=== PATIENT | male | born 1955 | race Caucasian/White ===

== ENCOUNTER 2017-03-26 09:45 | Outpatient (CLI) | payer MEDICARE, OTHER ==
[2017-03-26] VITALS (7 sets, daily range): BP systolic 125–155; BP diastolic 54–80
[~2017-03-26] VITALS: Ht 175.3 cm; Wt 90.7 kg
[~2017-03-26 09:45] MED LIST: ACET-804 PO; ALLO300T PO; AMIT50TA PO; AMLO10TA4 PO; ASPI-482 PO; CALC0.25 PO; CHOL10003 PO; DARB60DI SQ; FERR-36 PO; FURO20TA3 PO; GABA-586 PO; GLYB5TAB3 PO; HALO5VIA2 IM; HYDR-2758 PO; HYDR-2869 PO; HYDR28OI2 TP; INSU100C SQ; INSU100I13 SQ; IPRA3AMP IH; IPRA3AMP NEB; ISOS60TA2 PO; LORA1TAB PO; MAGN250T10 PO; MAGN400T3 PO; METO50TA2 PO; MULT-246 PO; MYCO500T PO; NAPH1POW2 PO; NYST100054 PO; PRED2.5T PO; SODI650T PO; TACR0.5C2 PO
[2017-03-26 10:16] LABS: BASO # 0.1 x10^3/uL (0.0-0.2); BASO % 1 % (0-3); EOS % 3 % (0-3); HEMATOCRIT 43.8 % (39.0-53.0); LYMPH % 21 % (24-48); MEAN CORPUSCULAR HEMOGLOBIN 33 pg (25-35); MEAN CORPUSCULAR HGB CONC 34 g/dL (31-37); MEAN CORPUSCULAR VOLUME 95 fL (79-100); MONO % 8 % (0-9); NEUT % 67 % (31-73); PLATELET COUNT 140 x10^3/uL (140-400); RED BLOOD COUNT 4.61 x10^6/uL (4.30-5.70); RED CELL DISTRIBUTION WIDTH 16.9 % (11.5-14.5); WHITE BLOOD COUNT 4.9 x10^3/uL (4.0-11.0)
[2017-03-26 10:33] LABS: INR 1.1 (0.8-1.1); PROTHROMBIN TIME PATIENT 13.2 SEC (11.7-14.0)
[2017-03-26] MEDS ORDERED: IODIXANOL 320 MG/ML 100 ML VIAL. ONE (11:01)
[2017-03-26] MEDS ORDERED: LIDOCAINE 1% / SOD BICARB 8.4% 20 ML VIAL. IJ ONE ×2 (11:01→11:30)
[2017-03-26] MEDS ORDERED: MULT-208 PO (11:06)
[2017-03-26] MEDS ORDERED: PRAV10TA2 PO (11:06)
[2017-03-26] MEDS ORDERED: MAGN100T6 PO (11:06)
[2017-03-26] MEDS ORDERED: METO50TA2 PO (11:06)
[2017-03-26] MEDS ORDERED: ALLO300T PO (11:06)
[2017-03-26] MEDS ORDERED: ISOS30TA19 PO (11:06)
[2017-03-26] MEDS ORDERED: CALC667T PO (11:06)
[2017-03-26] MEDS ORDERED: fentaNYL PF VIAL 100 MCG/2 ML VIAL ONE (11:15)
[2017-03-26] MEDS ORDERED: MIDAZOLAM HCL/PF 2 MG/2 ML VIAL. ONE (11:15)
[2017-03-26] MEDS ORDERED: HEPARIN for IV BOLUS 10,000 UNIT/10 ML VIAL. ONE (11:16)
[2017-03-26] MEDS ORDERED: IODIXANOL 320 MG/ML 100 ML VIAL. IART ONE (11:30)
[2017-03-26] MEDS ORDERED: HEPARIN for IV BOLUS 10,000 UNIT/10 ML VIAL. IV ONE (11:30)
[2017-03-26] MEDS ORDERED: MIDAZOLAM HCL/PF 2 MG/2 ML VIAL. IV ONE (11:30)
[2017-03-26] MEDS ORDERED: fentaNYL PF VIAL 100 MCG/2 ML VIAL IV ONE (11:30)
[2017-03-26] MEDS ORDERED: CONTRAST GIVEN MC PRN (11:45)
--- NOTE | 2017-03-26 14:53 | RAD ---
03/26/2017 1.Left lower extremity fistulogram 2. Venoplasty of left brachiocephalic vein stenosis Discussion: The risks and benefits of the procedure were discussed patient. Informed consent was obtained. The patient was brought to the interventional suite placed in the supine position. A timeout procedure was performed. The left upper extremity was prepped and draped using maximum sterile barrier technique. The left arm fistula was accessed using ultrasound guidance and micropuncture technique. Reference images were saved in the medical record. A 5 E[place] vascular sheath was placed. Fistulogram through obtained demonstrating patent AV anastomosis. The outflow vein is patent including the previously placed left cephalic vein stent. There is however central venous stenosis involving the left brachiocephalic vein filling of multiple venous collaterals. The MPA catheter and angled Glidewire were used to traverse the stenosis. Guidewire was advanced into the inferior vena cava. Over this wire balloon dilatation was performed across a stenotic lesion first with a 10 mm balloon, and subsequently with a 12 mm balloon. The patient experienced mild chest discomfort during angioplasty with a 12 mm balloon. Following this, repeat venograms demonstrated significantly improved morphology and flow through the left brachiocephalic vein. Mild residual stenosis is present, which does not appear to be flow-limiting. The wires and catheters were removed. The sheath was removed and a pursestring suture placed to achieve hemostasis. No immediate complications were identified. The procedure was performed under conscious sedation including continuous cardiopulmonary monitoring via a dedicated sedation nurse. Sedation time was approximately 45 minutes. Fluoroscopy time 7.3 minutes. 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 There is significant improvement in morphology and flow through the left brachiocephalic vein. Some mild residual narrowing is seen, however this does not appear to be flow-limiting. Left upper extremity fistula otherwise patent.
== END 2017-03-26 14:02 | disposition home or self-care (01) ==
LOC: INTRAD 09:45
PROVIDERS: ATTEND Internal Medicine Nephrology
DX: I87.1 Compression of vein (principal); I48.91 Unspecified atrial fibrillation; M19.90 Unspecified osteoarthritis, unspecified site; K21.9 Gastro-esophageal reflux disease without esophagitis; D64.9 Anemia, unspecified; I13.0 Hypertensive heart and chronic kidney disease with heart failure and stage 1 through stage 4 chronic kidney disease, or unspecified chronic kidney disease; E11.22 Type 2 diabetes mellitus with diabetic chronic kidney disease; N18.9 Chronic kidney disease, unspecified; I50.9 Heart failure, unspecified; Z90.49 Acquired absence of other specified parts of digestive tract; Z86.69 Personal history of other diseases of the nervous system and sense organs; Z87.39 Personal history of other diseases of the musculoskeletal system and connective tissue; Z94.0 Kidney transplant status
CPT/HCPCS: 36415; 36902; 76937; 85027; 85610; 99152; 99153; C1758; C1769; C1892; C1894; J1644; J2250; J3010

== ENCOUNTER → 2018-10-27 | Outpatient (CLI) | payer MEDICARE, OTHER ==
[2017-05-02 15:00] VITALS: BP 108/65
[~2018-10-27] MED LIST changes: +CALC667T4 PO; -GABA-586 PO; +GABA300C18 PO; -HYDR-2758 PO; +HYDR-2761 PO; -IPRA3AMP IH; -IPRA3AMP NEB; +IPRA3AMP29 IH; +IPRA3AMP29 NEB; +ISOS30TA19 PO; +MAGN100T6 PO; -METO50TA2 PO; +METO50TA6 PO; +MULT-208 PO; +PRAV10TA2 PO
--- NOTE | 2018-10-27 10:29 | RAD ---
DATE: 10/27/2018 EXAM: DIGITAL DIAGNOSTIC BILATERAL, BREAST LEFT HISTORY: Left breast pain COMPARISON: Baseline study This study was interpreted with the benefit of Computerized Aided Detection (CAD). Breast Density: FATTY The breast parenchyma is primarily fatty replaced. Breast parenchyma level density A. FINDINGS: There is a small amount of retroareolar fibroglandular tissue, left greater than right. On the left this is flame-shaped in configuration with the pattern suggesting mild gynecomastia. No suspicious breast mass is seen. Scattered benign type calcifications are present. No suspicious microcalcifications are identified. Left breast ultrasound, 10/27/2018: A targeted ultrasound exam of the retroareolar region was performed. There is a triangular-shaped, mildly heterogeneous hypoechoic process centered directly behind the nipple. The appearance is typical of gynecomastia. No suspicious mass or abnormal fluid collection is seen. IMPRESSION: Mild left gynecomastia. Clinical surveillance is suggested. BI-RADS CATEGORY: 2 BENIGN FINDING(S) RECOMMENDED FOLLOW-UP: CLIN FOLLOW UP IMAGING CLINICALLY INDICATED PQRS compliance statement: Patient information was entered into a reminder system with a target due date for the next mammogram. Mammography is a sensitive method for finding small breast cancers, but it does not detect them all and is not a substitute for careful clinical examination. A negative mammogram does not negate a clinically suspicious finding and should not result in delay in biopsying a clinically suspicious abnormality. "Our facility is accredited by the [employer] Mammography Program."
== END | disposition home or self-care (01) ==
LOC: MAMMO 09:14
PROVIDERS: ATTEND Family Medicine
DX: N62 Hypertrophy of breast (principal)
CPT/HCPCS: 76641; 77066

== ENCOUNTER 2019-11-22 15:28 | Emergency (ER) | payer MEDICARE ==
[~2019-11-22] VITALS: Ht 175.3 cm; Wt 95.4 kg
[~2019-11-22 15:28] MED LIST changes: -MAGN400T3 PO; +MAGN400T5 PO
[2019-11-22 17:09] LABS: BASO # 0.1 x10^3/uL (0.0-0.2); BASO % 2 % (0-3); EOS # 0.1 x10^3/uL (0.0-0.7); EOS % 2 % (0-3); HEMATOCRIT 34.7 % (39.0-53.0); HEMOGLOBIN 11.7 g/dL (13.0-17.5); LYMPH # 1.1 x10^3/uL (1.0-4.8); LYMPH % 17 % (24-48); MEAN CORPUSCULAR HEMOGLOBIN 32 pg (25-35); MEAN CORPUSCULAR HGB CONC 34 g/dL (31-37); MEAN CORPUSCULAR VOLUME 96 fL (79-100); MONO # 0.5 x10^3/uL (0.0-1.1); MONO % 8 % (0-9); NEUT # 4.5 x10^3/uL (1.8-7.7); NEUT % 71 % (31-73); PLATELET COUNT 188 x10^3/uL (140-400); RED CELL DISTRIBUTION WIDTH 17.1 % (11.5-14.5); WHITE BLOOD COUNT 6.2 x10^3/uL (4.0-11.0)
[2019-11-22 17:19] LABS: CALCIUM 9.1 mg/dL (8.5-10.1); CREATININE 8.1 mg/dL (0.7-1.3); GFR 6.7; POTASSIUM 5.1 mmol/L (3.5-5.1)
[2019-11-22 17:24] LABS: ALBUMIN 3.3 g/dL (3.4-5.0); MAGNESIUM 2.8 mg/dL (1.8-2.4); TOTAL BILIRUBIN 0.9 mg/dL (0.2-1.0); TOTAL PROTEIN 6.6 g/dL (6.4-8.2)
--- NOTE | 2019-11-22 17:37 | RAD ---
PORTABLE CHEST 1V 11/22/2019 4:40 PM INDICATION: Chest pain for one day COMPARISON: 11/30/2015 TECHNIQUE: Portable frontal view of the chest is provided. FINDINGS: The cardiomediastinal silhouette is mildly enlarged. Lungs are clear. Vascular stent graft is identified within the superior mediastinum. There are no significant pleural effusions. There is no pulmonary vascular congestion. No pneumothorax. IMPRESSION: Mild cardiomegaly appears stable. No new airspace consolidation is identified. New vascular stent graft projects over the superior mediastinum. Electronically signed by: Sol Zhong MD (11/22/2019 5:35 PM) [facility]
--- NOTE | 2019-11-22 17:49 | PHYS DOC ---
Past Medical History Past Medical History: A-Fib, CHF, Diabetes-Type II, Hypertension, Renal Failure, Other Additional Past Medical Histor: POLYCYSTIC KIDNEY DISEASE,GOUT,NEUROPATHY,DIALYSIS,RESP FAILURE Past Surgical History: Other Additional Past Surgical Histo: KIDNEY TRANSPLANT,fistula L UPPER ARM Smoking Status: Never Smoker Alcohol Use: None Drug Use: None Adult General Chief Complaint Chief Complaint: SHORTNESS OF BREATH HPI HPI Patient is a 64 year old male who was sent here from dialysis center due to cough. Patient has end-stage renal failure, he was at dialysis center today to have dialysis. After having done with the dialysis patient told the nurse that that he had a dry cough for couple days but denies any fever, no trouble raman thing. Patient feels fine. Patient denies any abdominal pain, no nausea vomiting. Patient did not want to come here however the dialysis center insisted to send him here for evaluation. Patient denies any sore throat, no recent travel anywhere. Patient did not know that he been exposed to anybody with coronavirus. Review of Systems Review of Systems Constitutional: Denies fever or chills [] Eyes: Denies change in visual acuity, redness, or eye pain [] HENT: Denies nasal congestion or sore throat [] Respiratory: Positive for cough, no shortness of breath [] Cardiovascular: No additional information not addressed in HPI [] GI: Denies abdominal pain, nausea, vomiting, bloody stools or diarrhea [] : Denies dysuria or hematuria [] Musculoskeletal: Denies back pain or joint pain [] Integument: Denies rash or skin lesions [] Neurologic: Denies headache, focal weakness or sensory changes [] Endocrine: Denies polyuria or polydipsia [] All other systems were reviewed and found to be within normal limits, except as documented in this note. Allergies Allergies Allergies Coded Allergies Type Severity Reaction Last Updated Verified I S O L A T I O N *CONTACT* Allergy Unknown 05/06/17 Yes No Known Medication Allergies Allergy Unknown 05/06/17 Yes Physical Exam Physical Exam Constitutional: Well developed, well nourished, no acute distress, non-toxic appearance. [] HENT: Normocephalic, atraumatic, bilateral external ears normal, oropharynx moist, no oral exudates, nose normal. [] Eyes: PERRLA, EOMI, conjunctiva normal, no discharge. [] Neck: Normal range of motion, no tenderness, supple, no stridor. [] Cardiovascular:Heart rate regular rhythm, no murmur [] Lungs & Thorax: Bilateral breath sounds clear to auscultation [] Abdomen: Bowel sounds normal, soft, no tenderness, no masses, no pulsatile masses. [] Skin: Warm, dry, no erythema, no rash. [] Back: No tenderness, no CVA tenderness. [] Extremities: No tenderness, no cyanosis, no clubbing, ROM intact, no edema. [] Neurologic: Alert and oriented X 3, normal motor function, normal sensory function, no focal deficits noted. [] Psychologic: Affect normal, judgement normal, mood normal. [] Current Patient Data Vital Signs Vital Signs Date Time Temp Pulse Resp B/P (MAP) Pulse Ox O2 Delivery O2 Flow Rate FiO2 11/22/19 15:42 98.2 60 20 191/80 (117) 98 Room Air 98.2 Lab Values Laboratory Tests Test 11/22/19 16:45 White Blood Count 6.2 x10^3/uL (4.0-11.0) Red Blood Count 3.60 x10^6/uL (4.30-5.70) L Hemoglobin 11.7 g/dL (13.0-17.5) L Hematocrit 34.7 % (39.0-53.0) L Mean Corpuscular Volume 96 fL (79-100) Mean Corpuscular Hemoglobin 32 pg (25-35) Mean Corpuscular Hemoglobin Concent 34 g/dL (31-37) Red Cell Distribution Width 17.1 % (11.5-14.5) H Platelet Count 188 x10^3/uL (140-400) Neutrophils (%) (Auto) 71 % (31-73) Lymphocytes (%) (Auto) 17 % (24-48) L Monocytes (%) (Auto) 8 % (0-9) Eosinophils (%) (Auto) 2 % (0-3) Basophils (%) (Auto) 2 % (0-3) Neutrophils # (Auto) 4.5 x10^3/uL (1.8-7.7) Lymphocytes # (Auto) 1.1 x10^3/uL (1.0-4.8) Monocytes # (Auto) 0.5 x10^3/uL (0.0-1.1) Eosinophils # (Auto) 0.1 x10^3/uL (0.0-0.7) Basophils # (Auto) 0.1 x10^3/uL (0.0-0.2) Sodium Level 141 mmol/L (136-145) Potassium Level 5.1 mmol/L (3.5-5.1) Chloride Level 100 mmol/L (98-107) Carbon Dioxide Level 31 mmol/L (21-32) Anion Gap 10 (6-14) Blood Urea Nitrogen 25 mg/dL (8-26) Creatinine 8.1 mg/dL (0.7-1.3) H Estimated GFR (Cockcroft-Gault) 6.7 BUN/Creatinine Ratio 3 (6-20) L Glucose Level 88 mg/dL (70-99) Calcium Level 9.1 mg/dL (8.5-10.1) Magnesium Level 2.8 mg/dL (1.8-2.4) H Total Bilirubin 0.9 mg/dL (0.2-1.0) Aspartate Amino Transferase (AST) 17 U/L (15-37) Alanine Aminotransferase (ALT) 13 U/L (16-63) L Alkaline Phosphatase 67 U/L (46-116) Troponin I Quantitative < 0.017 ng/mL (0.000-0.055) AP-Ikr-F-Type Natriuretic Peptide 34896 pg/mL (0-124) H Total Protein 6.6 g/dL (6.4-8.2) Albumin 3.3 g/dL (3.4-5.0) L Albumin/Globulin Ratio 1.0 (1.0-1.7) Laboratory Tests 11/22/19 16:45 Laboratory Tests 11/22/19 16:45 EKG EKG [] Radiology/Procedures Radiology/Procedures [][facility] [address] [place], [place] [id number] IMAGING REPORT Signed PATIENT: CARLINE JEFFERSON ACCOUNT: [id number] : 1955 LOCATION: ER AGE: 64 SEX: M EXAM STATUS: REG ER ORD. PHYSICIAN: KENIA HAMM DO REASON: soa, chest pain x1 day PROCEDURE: PORTABLE CHEST 1V PORTABLE CHEST 1V 11/22/2019 4:40 PM INDICATION: Chest pain for one day COMPARISON: 11/30/2015 TECHNIQUE: Portable frontal view of the chest is provided. FINDINGS: The cardiomediastinal silhouette is mildly enlarged. Lungs are clear. Vascular stent graft is identified within the superior mediastinum. There are no significant pleural effusions. There is no pulmonary vascular congestion. No pneumothorax. IMPRESSION: Mild cardiomegaly appears stable. No new airspace consolidation is identified. New vascular stent graft projects over the superior mediastinum. Electronically signed by: Lupe Blancas MD (11/22/2019 5:35 PM) [facility] DICTATED and SIGNED BY: LUPE BLANCAS MD DATE: 11/22/19 0736 Course & Med Decision Making Course & Med Decision Making Pertinent Labs and Imaging studies reviewed. (See chart for details) Patient is a 64-year-old male who was evaluated here in the ER due to nonproductive cough. Chest x-ray did not show any new infiltration. Patient's blood pressure was elevated. But patient did not take her medication today. Patient oxygen saturation is normal, no fever.. Patient denies any chest pain, no fever. Patient feels like his normal self. Patient wants to go home. Dragon Disclaimer Dragon Disclaimer This electronic medical record was generated, in whole or in part, using a voice recognition dictation system. Departure Departure Impression: Primary Impression: Cough Disposition: 01 HOME, SELF-CARE Condition: STABLE Referrals: WILLIAN BOWEN MD (PCP) FOLLOW UP WITH YOUR DOCTOR THIS WEEK NEEDED Patient Instructions: Cough, Adult Additional Instructions: Thank you for visiting our Emergency Department. We appreciate you trusting us with your care. If any additional problems come up don't hesitate to return to visit us. Please follow up with your primary care provider so they can plan additional care if needed and know about the problem that you had. If symptoms worsen come back to the Emergency Department. Any concerning symptoms that start such as chest pain, shortness of air, weakness or numbness on one side of the body, running high fevers or any other concerning symptoms return to the ER. COVID-19 Assessment: COVID-19 Patient Risks: Age 65 or older: Yes Sign of co-morbidity: Yes Exp to person + for COVID: No Exp to PUI: No Travel from affected area: No Lower respiratory symptoms: No Fever: No Other: No PPE Use: Full PPE with N95 mask or PAPR: Yes (FULL PPE WITH PAPR) KENIA HAMM DO Nov 22, 2019 17:48
[2019-11-22 17:52] VITALS: BP 156/68
== END 2019-11-22 18:02 | disposition home or self-care (01) ==
LOC: ER 15:28
DX: R05 Cough (principal); E11.22 Type 2 diabetes mellitus with diabetic chronic kidney disease; I13.2 Hypertensive heart and chronic kidney disease with heart failure and with stage 5 chronic kidney disease, or end stage renal disease; I50.9 Heart failure, unspecified; N18.6 End stage renal disease; I48.91 Unspecified atrial fibrillation; Z91.041 Radiographic dye allergy status; Z94.0 Kidney transplant status; Q61.3 Polycystic kidney, unspecified; Z99.2 Dependence on renal dialysis
CPT/HCPCS: 36415; 71045; 80053; 83735; 83880; 84484; 85025; 99284-25

== ENCOUNTER → 2021-03-13 | Outpatient (CLI) | payer MEDICARE ==
[~2021-03-13] MED LIST changes: +CONTRAST GIVEN. MC PRN; +IOHEXOL 240 MG/ML 50ML VIAL. PO ONE; +IOHEXOL 300 MG/ML 100ML VIAL. IV ONE; -ISOS60TA2 PO; +ISOS60TA55 PO
--- NOTE | 2021-03-13 15:59 | RAD ---
CT of the abdomen and pelvis with contrast 03/13/2021 3:46 PM Indication: Reason: L ABD PAIN / Spl. Instructions: 75ML OMNI 300 30ML OMNI 240 PO / History: H/O KI DNEY TRANSPLANT-NON FUNCTIONING-POLYCYSTIC KIDNEY DISEASE Comparison study: CT of the abdomen and pelvis without contrast July 21, 2008 Technique: Multidetector CT imaging of the abdomen and pelvis was performed following the administrat ion of IV contrast. Findings: Visualized lung bases demonstrate no acute abnormality. Dense coronary calcification appear s be present in the partially visualized coronary arteries. Polycystic kidney disease again noted. Th e renal parenchyma is essentially completely replaced with cysts. Areas of calcification noted. Multi ple hepatic cysts are also seen. Areas of calcification with hepatic cyst was noted. The adrenal glan ds are normal. The spleen is mildly enlarged. Pancreas is grossly unremarkable. The gallbladder is uriarte rgically absent. The portal vein is patent. There is no bowel obstruction. No evidence of acute infla mmatory change involving the bowel is identified. Appendix appears to be surgically absent. There is an atrophic transplant kidney in the right pelvis is severe calcification supplying arteries. There i s severe diffuse atherosclerotic vascular disease. There is no acute osseous abnormality identified. Degenerative changes of the thoracic and lumbar spine noted. IMPRESSION: 1. No acute intra-abdominal abnormality is identified. 2. Polycystic kidney disease. Multiple associated hepatic cysts noted. 3. Other chronic changes as described CT DOSING PQRS STATEMENT: One or more of the following individualized dose reduction techniques were utilized for this examinat ion: 1. Automated exposure control 2. Adjustment of the mA and/or kV according to patient size 3. Use of iterative reconstruction technique Electronically signed by: Harpreet Carbajal MD (03/13/2021 3:57 PM) [id number]
== END ==
LOC: CT 09:35
PROVIDERS: ATTEND Nurse Practitioner Adult Health
DX: Q61.3 Polycystic kidney, unspecified (principal); K76.89 Other specified diseases of liver; R16.1 Splenomegaly, not elsewhere classified; N26.1 Atrophy of kidney (terminal); I99.8 Other disorder of circulatory system; M47.815 Spondylosis without myelopathy or radiculopathy, thoracolumbar region
CPT/HCPCS: 74177; Q9966; Q9967

== ENCOUNTER → 2021-08-07 | Outpatient (CLI) | payer MEDICARE ==
[~2021-08-07] MED LIST changes: -CONTRAST GIVEN. MC PRN; -IOHEXOL 240 MG/ML 50ML VIAL. PO ONE; -IOHEXOL 300 MG/ML 100ML VIAL. IV ONE; +MAGN400T48 PO; -MAGN400T5 PO; +REGADENOSON 0.4 MG/5 ML DISP.SYRIN. IV ONE
--- NOTE | 2021-08-08 09:17 | CARD ---
MR#: [id number] Date of Study: 08/07/2021 Ordering Physician: JOHN SORENSON, Referring Physician: JOHN SORENSON Tech: Diamond Diaz [facility] APPROVED REPORT EXAM: Two-dimensional and M-mode echocardiogram with Doppler and color Doppler. Other Information Quality : AverageHR: 78bpm Rhythm : NSR INDICATION Dyspnea RISK FACTORS Hypertension Obesity Diabetes 2D DIMENSIONS RVDd3.3 (2.9-3.5cm)Left Atrium(2D)3.3 (1.6-4.0cm) IVSd1.0 (0.7-1.1cm)Aortic Root(2D)4.0 (2.0-3.7cm) LVDd4.6 (3.9-5.9cm)LVOT Diameter2.4 (1.8-2.4cm) PWd1.2 (0.7-1.1cm)LVDs2.8 (2.5-4.0cm) FS (%) 38.4 %SV67.3 ml Aortic Valve AoV Peak Mayo.128.9cm/sAoV VTI24.4cm AO Peak GR.6.6mmHgLVOT Peak Mayo.103.1cm/s AO Mean GR.3mmHgAVA (VMAX)3.52cm2 Mitral Valve MV E Dcnalvki34.2cm/sMV DECEL [id number] MV A Deargkue013.8cm/sE/A Ratio0.7 Tricuspid Valve TR P. Hdbideyw005gl/sTR Peak Gr.30mmHg LEFT VENTRICLE The left ventricle is normal size. There is borderline to mild concentric left ventricular hypertroph y. The left ventricular systolic function is normal and the ejection fraction is within normal range. LV ejection fraction 55 to 60 %. There is normal LV segmental wall motion. Transmitral Doppler flow pattern is Grade I-abnormal relaxation pattern. RIGHT VENTRICLE The right ventricle is normal size. There is normal right ventricular wall thickness. The right ventr icular systolic function is normal. ATRIA The left atrium size is normal. The right atrium size is normal. The interatrial septum is intact wit h no evidence for an atrial septal defect or patent foramen ovale as noted on 2-D or Doppler imaging. AORTIC VALVE The aortic valve is normal in structure and function. Doppler and Color Flow revealed trace aortic re gurgitation. There is no significant aortic valvular stenosis. MITRAL VALVE The mitral valve is normal in structure and function. There is no evidence of mitral valve prolapse. There is no mitral valve stenosis. Doppler and Color Flow revealed no mitral valve regurgitation note d. TRICUSPID VALVE The tricuspid valve is normal in structure and function. Doppler and Color Flow revealed trace tricus pid regurgitation. Estimated PAP 35 mmHg. There is no tricuspid valve stenosis. PULMONIC VALVE The pulmonary valve is normal in structure and function. Doppler and Color Flow revealed no pulmonic valvular regurgitation. GREAT VESSELS The aortic root is mildly enlarged. The ascending aorta is mildly dilated. The IVC is normal in size and collapses >50% with inspiration. PERICARDIAL EFFUSION There is no evidence of significant pericardial effusion. Critical Notification Critical Value: No <Conclusion> The left ventricle is normal size. The left ventricular systolic function is normal and the ejection fraction is within normal range. LV ejection fraction 55 to 60 %. There is normal LV segmental wall motion. There is borderline to mild concentric left ventricular hypertrophy. Doppler and Color Flow revealed trace aortic regurgitation. There is no significant aortic valvular stenosis. Doppler and Color Flow revealed no mitral valve regurgitation noted. Doppler and Color Flow revealed trace tricuspid regurgitation. Estimated PAP 35 mmHg. The aortic root is mildly enlarged. Signed by : Vinayak Franco MD Electronically Approved : 08/08/2021 09:17:15
--- NOTE | 2021-08-08 09:44 | RAD ---
MR#: [id number] Date of Study: 08/07/2021 Ordering Physician: JOHN SORENSON, Referring Physician: MARY ENCARANCION Tech: RT Carol (R) (N) APPROVED REPORT Test Type: Pharmacological Stress Nurse/Tech: Leslie Tran RN Test Indications: ATKINS Cardiac History: See EMR. Medications: ASA, Insulin, See EMR. Medical History: DM, ESRD=Hemodialysis, See EMR. Resting ECG: SR Resting Heart Rate: 77 bpm Resting Blood Pressure: 148/74mmHg Pretest Chest Pain: No chest pain Nurse/Tech Notes Lungs CTA, Heart tones regular. Consent: The procedure was explained to the patient in lay terms. Informed consent was witnessed. Leroy eout was entered into [employer]. History and Stress Test performed by ALEK Rucker Pharm. Details Pharmacologic stress testing was performed using 0.4mg per 5ml of regadenoson given intravenously ove r 7-10 seconds. Stress Symptoms Nausea & Vomiting. Pt explains that he has N&V with all stress tests; this was relieved by the end of recovery. Pt denies any chest pain/pressure or SOB. POST EXERCISE Reason for Termination: Infusion complete Max HR: 114 bpm Max Blood Pressure: 178/100mmHg Blood Pressure response to exercise: Normal blood pressure response during stress. Heart Rate response to exercise: WNL Chest Pain: No. Arrhythmia: No. ST Change: No. INTERPRETATION Stress EKG Conclusion: The resting EKG shows a sinus rhythm with nonspecific ST-T wave changes and a septal Q wave. The stress EKG shows no significant changes from baseline. No EKG evidence of stress-induced ischemia. Imaging Protocol IMAGE PROTOCOL: Rest Tc-99m/stress Tc-99m 1 day Rest: Stress: Viability: Radiopharm.Tc99m RfcnsmxioYi74l Sestamibi Jylp8pOc 32mCi Duration 15min. 15min. Img Date 08/07/2021 08/07/2021 Inj-Img Odee52fat. 60min. Rest Admin Site:IV - Left AntecubitalAdministrator:RT Yandy Medina)(N) Stress Admin Site: IV - Left AntecubitalAdministrator: ALEK Rucker STRESS DATA End Diast. Vol.131.0mlAv. Heart Rate81.0bpm End Syst. Vol.42.0mlCO Index BSA7.2L/min Myocardial Tbmc211.0gEject. Gfplapjt57.0% Stress Rates Pk. Fill Rate2.95EDV/secLVtime Pk. Fill 208.36msec Pk. Empty Rate3.90ESV/secLVtime Pk. Ukvph542.34msec 08/20 Pk. Fill0.47EDV/sec Stress Scores Regional WT2.00Summed WT9.00 Regional WM0.00Summed WM1.00 LV Perfusion The stress scans showed no significant defects. The rest scans showed no significant defects. Nuclear imaging shows no reversible ischemia or infarct. Wall Motion Left ventricular systolic function is normal with an ejection fraction of 68%. LV Perf. Quant 17 Seg. SSS1.00 17 Seg. SRS1.00 17 Seg. SDS0.00 Stress Defect Extent (% LAD)0.00Rest Defect Extent (% LAD)0.00Rev. Defect Extent (% LAD)0.00 Stress Defect Extent (% LCX) 13.80Rest Defect Extent (% LCX)11.30Rev. Defect Extent (% LCX)8.80 Stress Defect Extent (% RCA)0.00Rest Defect Extent (% RCA)0.00Rev. Defect Extent (% RCA)0.00 Stress Defect Extent (% MARIS)2.40Rest Defect Extent (% MARIS)2.20Rev. Defect Extent (% MARIS)1.50 Conclusion 1. Abnormal baseline EKG but no EKG evidence of stress-induced ischemia. 2. Nuclear imaging shows no reversible ischemia or infarct. 3. Normal left ventricular systolic function with an ejection fraction of 68%. 4. Moderately low risk Lexiscan nuclear stress test. Signed by : Vinayak Franco MD Electronically Approved : 08/08/2021 09:43:59
== END ==
LOC: NM 14:43
PROVIDERS: ATTEND Internal Medicine Cardiovascular Disease
DX: I51.7 Cardiomegaly (principal); R94.31 Abnormal electrocardiogram [ECG] [EKG]; R06.00 Dyspnea, unspecified
CPT/HCPCS: 78452; 93017; 93306; A9500; J2785

== ENCOUNTER 2021-10-15 09:32 | Inpatient (IN) | payer MEDICARE ==
[~2021-10-15] VITALS: Ht 175.3 cm; Wt 97.7 kg
[~2021-10-15 09:32] MED LIST changes: -REGADENOSON 0.4 MG/5 ML DISP.SYRIN. IV ONE
[2021-10-15] MEDS ORDERED: NITROGLYCERIN PREMIX 250 ML IV ONE (09:45)
[2021-10-15 10:11] LABS: BASO # 0.1 x10^3/uL (0.0-0.2); BASO % 1 % (0-3); EOS # 0.1 x10^3/uL (0.0-0.7); EOS % 3 % (0-3); HEMATOCRIT 38.2 % (39.0-53.0); HEMOGLOBIN 12.2 g/dL (13.0-17.5); LYMPH # 1.6 x10^3/uL (1.0-4.8); LYMPH % 27 % (24-48); MEAN CORPUSCULAR HEMOGLOBIN 33 pg (25-35); MEAN CORPUSCULAR HGB CONC 32 g/dL (31-37); MEAN CORPUSCULAR VOLUME 103 fL (79-100); MONO # 0.4 x10^3/uL (0.0-1.1); MONO % 7 % (0-9); NEUT # 3.6 x10^3/uL (1.8-7.7); NEUT % 62 % (31-73); PLATELET COUNT 146 x10^3/uL (140-400); RED BLOOD COUNT 3.72 x10^6/uL (4.30-5.70); RED CELL DISTRIBUTION WIDTH 14.1 % (11.5-14.5); WHITE BLOOD COUNT 5.8 x10^3/uL (4.0-11.0)
--- NOTE | 2021-10-15 10:18 | RAD ---
AP chest. HISTORY: Dyspnea AP view was taken of the chest. Heart is mildly prominent. There are interstitial changes from the celeste ngs from interstitial infiltrates or pulmonary edema. There is no definite effusion. IMPRESSION: 1. Interstitial infiltrates or pulmonary edema. Electronically signed by: Oscar Vera MD (10/15/2021 10:15 AM) [facility]
[2021-10-15 10:31] LABS: ALBUMIN 3.7 g/dL (3.4-5.0); ALBUMIN/GLOBULIN RATIO 0.9 (1.0-1.7); CALCIUM 8.4 mg/dL (8.5-10.1); CREATININE 12.4 mg/dL (0.7-1.3); GFR 4.1; MAGNESIUM 3.2 mg/dL (1.8-2.4); TOTAL BILIRUBIN 1.1 mg/dL (0.2-1.0); TOTAL PROTEIN 7.6 g/dL (6.4-8.2)
[2021-10-15 10:33] LABS: POTASSIUM 6.2 mmol/L (3.5-5.1)
[2021-10-15 10:44] LABS: PROTHROMBIN TIME PATIENT 12.4 SEC (11.7-14.0)
[2021-10-15 10:47] LABS: D-DIMER 0.57 ug/mlFEU (0.00-0.50)
[2021-10-15 10:47] LABS: INFLUENZA A PATIENT NEGATIVE (NEGATIVE); INFLUENZA B PATIENT NEGATIVE (NEGATIVE)
[2021-10-15] MEDS ORDERED: DEXTROSE 50% 25 GM / 50ML DISP.SYRIN. IV ONE (12:45)
[2021-10-15] MEDS ORDERED: CALCIUM GLUCONATE 1,000 MG/10 ML VIAL. IVP ONE (12:45)
[2021-10-15] MEDS ORDERED: ALBUTEROL SULFATE 2.5 MG/3 ML NEBU. NEB ONE (12:45)
[2021-10-15] MEDS ORDERED: INSULIN REGULAR 100 UNIT/ML 3ML VIAL. IV ONE (12:45)
--- NOTE | 2021-10-15 13:01 | PHYS DOC ---
Past Medical History Past Medical History: A-Fib, CHF, Diabetes-Type II, Hypertension, Renal Failure, Other Additional Past Medical Histor: POLYCYSTIC KIDNEY DISEASE,GOUT,NEUROPATHY,DIALYSIS,RESP FAILURE Past Surgical History: Other Additional Past Surgical Histo: KIDNEY TRANSPLANT,fistula L UPPER ARM Smoking Status: Never Smoker Alcohol Use: None Drug Use: None Adult General Chief Complaint Chief Complaint: SHORTNESS OF BREATH HPI HPI Patient is a 66 year old male with dyspnea that started early this morning. Patient has a history of end-stage renal disease and is on hemodialysis. Schedule is Friday any was scheduled for today. He denies any chest pain. He has had a nonproductive cough. No fever. No recent trauma. No history of COPD or congestive heart failure per patient. Review of Systems Review of Systems Constitutional: Denies fever Eyes: Denies change in visual acuity or eye pain HENT: Denies sore throat Respiratory: Reports shortness of breath Cardiovascular: Denies chest pain GI: Denies abd pain : Denies dysuria Musculoskeletal: Denies back or extremity injury Integument: Denies rash or skin lesions Neurologic: Denies headache, focal weakness or sensory changes All other systems were reviewed and found to be within normal limits, except as documented in this note. Current Medications Current Medications Current Medications Medications (Trade) Dose Ordered Sig/Clyde Start Time Stop Time Status Last Admin Dose Admin Albuterol Sulfate (Ventolin Neb Soln) 2.5 mg 1X ONCE 10/15/21 12:45 10/15/21 12:50 DC Calcium Gluconate (Calcium Gluconate) 1,000 mg 1X ONCE 10/15/21 12:45 10/15/21 12:50 DC Dextrose (Dextrose 50%-Water Syringe) 50 gm 1X ONCE 10/15/21 12:45 10/15/21 12:50 DC Insulin Human Regular (HumuLIN R VIAL) 10 unit 1X ONCE 10/15/21 12:45 10/15/21 12:50 DC Nitroglycerin/ Dextrose 250 ml @ 1.5 mls/hr 1X ONCE 10/15/21 09:45 10/22/21 08:24 10/15/21 10:16 1.5 MLS/HR Allergies Allergies Allergies Coded Allergies Type Severity Reaction Last Updated Verified I S O L A T I O N *CONTACT* Allergy Unknown 05/06/17 Yes No Known Medication Allergies Allergy Unknown 05/06/17 Yes Physical Exam Physical Exam Constitutional: Well developed, well nourished, no acute distress, non-toxic appearance. HENT: Normocephalic, atraumatic, bilateral external ears normal, mucosa moist, nose normal. Eyes: EOMI, conjunctiva normal, no discharge. Neck: Normal range of motion, supple, no stridor, no meningeal signs. Cardiovascular: Regular rate and rhythm Lungs & Thorax: Bilateral breath sounds diminished on auscultation, scattered wheezes Abdomen: Soft, no tenderness or obvious masses Skin: Warm, dry, no erythema, no rash. Extremities: No tenderness, no cyanosis, no clubbing, ROM intact, lower extremity edema. Neurologic: Alert and oriented, normal motor function, normal sensory function, no focal deficits noted. Psychologic: Affect normal, judgement normal, mood normal. Current Patient Data Vital Signs Vital Signs Date Time Temp Pulse Resp B/P (MAP) Pulse Ox O2 Delivery O2 Flow Rate FiO2 10/15/21 12:42 74 13 160/74 (102) 96 Room Air 10/15/21 09:33 97.6 97.6 Lab Values Laboratory Tests Test 10/15/21 09:52 10/15/21 10:04 10/15/21 10:13 White Blood Count 5.8 x10^3/uL (4.0-11.0) Red Blood Count 3.72 x10^6/uL (4.30-5.70) L Hemoglobin 12.2 g/dL (13.0-17.5) L Hematocrit 38.2 % (39.0-53.0) L Mean Corpuscular Volume 103 fL (79-100) H Mean Corpuscular Hemoglobin 33 pg (25-35) Mean Corpuscular Hemoglobin Concent 32 g/dL (31-37) Red Cell Distribution Width 14.1 % (11.5-14.5) Platelet Count 146 x10^3/uL (140-400) Neutrophils (%) (Auto) 62 % (31-73) Lymphocytes (%) (Auto) 27 % (24-48) Monocytes (%) (Auto) 7 % (0-9) Eosinophils (%) (Auto) 3 % (0-3) Basophils (%) (Auto) 1 % (0-3) Neutrophils # (Auto) 3.6 x10^3/uL (1.8-7.7) Lymphocytes # (Auto) 1.6 x10^3/uL (1.0-4.8) Monocytes # (Auto) 0.4 x10^3/uL (0.0-1.1) Eosinophils # (Auto) 0.1 x10^3/uL (0.0-0.7) Basophils # (Auto) 0.1 x10^3/uL (0.0-0.2) Sodium Level 146 mmol/L (136-145) H Potassium Level 6.2 mmol/L (3.5-5.1) *H Chloride Level 103 mmol/L (98-107) Carbon Dioxide Level 27 mmol/L (21-32) Anion Gap 16 (6-14) H Blood Urea Nitrogen 53 mg/dL (8-26) H Creatinine 12.4 mg/dL (0.7-1.3) H Estimated GFR (Cockcroft-Gault) 4.1 BUN/Creatinine Ratio 4 (6-20) L Glucose Level 176 mg/dL (70-99) H Lactic Acid Level 2.6 mmol/L (0.4-2.0) H Calcium Level 8.4 mg/dL (8.5-10.1) L Magnesium Level 3.2 mg/dL (1.8-2.4) H Total Bilirubin 1.1 mg/dL (0.2-1.0) H Aspartate Amino Transferase (AST) 8 U/L (15-37) L Alanine Aminotransferase (ALT) 17 U/L (16-63) Alkaline Phosphatase 66 U/L (46-116) Troponin I High Sensitivity 1066 ng/L (4-75) H JT-Dsv-R-Type Natriuretic Peptide > 72945 pg/mL (0-124) H Total Protein 7.6 g/dL (6.4-8.2) Albumin 3.7 g/dL (3.4-5.0) Albumin/Globulin Ratio 0.9 (1.0-1.7) L Influenza Type A Antigen Negative (NEGATIVE) Influenza Type B Antigen Negative (NEGATIVE) SARS-CoV-2 Antigen (Rapid) Negative (NEGATIVE) Prothrombin Time 12.4 SEC (11.7-14.0) Prothrombin Time INR 0.9 (0.8-1.1) Activated Partial Thromboplast Time 27 SEC (24-38) D-Dimer (Poornima) 0.57 ug/mlFEU (0.00-0.50) H Laboratory Tests 10/15/21 09:52 Laboratory Tests 10/15/21 09:52 EKG EKG [] Interpretation Time: OrTold EKG demonstrates sinus rhythm with an overall rate of 84. GA, QRS and QT corrected are 198, 116 and 380 ms respectively. No T-segment elevation in. T waves are inverted in the inferior leads as well as in precordial lead V6. Nonspecific bundle branch delay pattern. Radiology/Procedures Radiology/Procedures [] Impressions: PATIENT: CARLINE JEFFERSON HACCOUNT: [id number]#: [id number] : 1955 LOCATION: ER AGE: 66 SEX: M EXAM STATUS: PRE ER ORD. PHYSICIAN: TOBY SON MD REASON: dyspnea PROCEDURE: CHEST AP ONLY AP chest. HISTORY: Dyspnea AP view was taken of the chest. Heart is mildly prominent. There are interstitial changes from the lungs from interstitial infiltrates or pulmonary edema. There is no definite effusion. IMPRESSION: 1. Interstitial infiltrates or pulmonary edema. Electronically signed by: Oscar Vera MD (10/15/2021 10:15 AM) [facility] DICTATED and SIGNED BY: OSCAR VERA MD DATE: 10/15/21 [id number] 0 Course & Med Decision Making Course & Med Decision Making Pertinent Labs and Imaging studies reviewed. (See chart for details) [] This is a 66-year-old male with dyspnea. Chest x-ray demonstrates likely pulmonary edema or at least pulmonary vascular congestion. Initial blood pressure was over 200 systolic. Started a nitro drip titrated at 40 mics per minute. Symptoms have improved with this. First potassium we have ordered calcium, albuterol, insulin and glucose. We will try to get him to dialysis soon as possible here. Patient be admitted to the hospital for further management, he is in stable guarded condition currently. Critical care time equals 30 minutes Dragon Disclaimer Dragon Disclaimer This electronic medical record was generated, in whole or in part, using a voice recognition dictation system. Departure Departure Impression: Primary Impression: Fluid overload Additional Impressions: Hyperkalemia Elevated troponin End stage renal disease Disposition: ADMITTED INPATIENT Condition: GUARDED Referrals: WILLIAN BOWEN MD (PCP) Problem Qualifiers TOBY SON MD Oct 15, 2021 13:01
--- NOTE | 2021-10-15 16:45 | NUR ---
Patient arrived to room 664 via bed from ER at 1645. Report received from AMILCAR Huggins in ER. Patient A&OX4. VSS. No complaints of pain. Patient is slightly short of breath. The patient, CARLINE JEFFERSON, 66 y/o, M admitted by MARILYN REZA III, DO, was given written information regarding hospital policies, unit procedures and contact persons. Valuables were checked and noted. Consults called.
[2021-10-15 17:32] VITALS: BP 159/76
[2021-10-15] MEDS ORDERED: FOLI0.8T32 PO (17:32)
[2021-10-15] MEDS ORDERED: NPH,100V5 SQ (17:35)
[2021-10-15] MEDS ORDERED: PRAV40TA2 PO (17:35)
[2021-10-15] MEDS ORDERED: FERR210T PO (17:37)
--- NOTE | 2021-10-15 17:43 | HP ---
DATE OF SERVICE: 10/15/2021 ADMIT DATE: 10/15/2021 CHIEF COMPLAINT: Shortness of breath. HISTORY OF PRESENT ILLNESS: The patient is a pleasant 66-year-old male who is on dialysis, but missed dialysis recently. Now, he is volume overloaded and short of breath. His troponin is high. I discussed the case with ER physician. We are going to admit the patient, get him dialyzed and consult Cardiology and Nephrology. PAST MEDICAL HISTORY: Noncompliance, AFib, CHF, diabetes, hypertension; end-stage renal disease, on dialysis; polycystic kidney disease, neuropathy, renal transplant, left arm fistula, previous respiratory failure. ALLERGIES: None. FAMILY HISTORY: Diabetes. SOCIAL HISTORY: He does not drink, smoke or take drugs. 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 MEDICATIONS: Reviewed. Please refer to the MRAD. REVIEW OF SYSTEMS: GENERAL: No history of weight change, weakness or fevers. SKIN: No bruising, hair changes or rashes. EYES: No blurred, double or loss of vision. NOSE AND THROAT: No history of nosebleeds, hoarseness or sore throat. HEART: No history of palpitations, chest pain or shortness of breath on exertion. LUNGS: He complains of shortness of breath. GASTROINTESTINAL: Denies changes in appetite, nausea, vomiting, diarrhea or constipation. GENITOURINARY: No history of frequency, urgency, hesitancy or nocturia. NEUROLOGIC: Denies history of numbness, tingling, tremor or weakness. PSYCHIATRIC: No history of panic, anxiety or depression. ENDOCRINE: No history of heat or cold intolerance, polyuria or polydipsia. EXTREMITIES: Denies muscle weakness, joint pain, pain on walking or stiffness. PHYSICAL EXAMINATION: VITALS: Within normal limits and are stable. GENERAL: No apparent distress. Alert and oriented. HEENT: Normal cephalic atraumatic, external auditory canals are patent. EYES: Extraocular muscles are intact, pupils are equally round and reactive to light and accommodation. MUSCULOSKELETAL: Well developed, well nourished, good range of motion. ENDOCRINE: No thyromegaly was palpated. LYMPHATICS: No cervical chain or axillary nodes were noted. HEMATOPOIETIC: No bruising. NECK: Supple, no JVD, no thyromegaly was noted. LUNGS: Clear to auscultation in all lung garcia without rhonchi or wheezing. HEART: RRR, S1, S2 present. Peripheral pulses intact, no obvious murmurs were noted. ABDOMEN: Soft, nontender. Positive bowel sounds no organomegaly, normal bowel sounds. EXTREMITIES: Without any cyanosis, clubbing, or edema. Pedal pulses intact, Homans sign is negative. NEUROLOGIC: Normal speech, normal tone. A and O x 3, moves all extremities, no obvious focal deficits. PSYCHIATRIC: Normal affect, normal mood. Stable. SKIN: No ulcerations or rashes, good skin turgor, no jaundice. VASCULAR: Good capillary refill, neurovascular bundle appears to be intact. LABORATORY DATA: Troponin is 1066. BNP greater than 35,000. Potassium is high at 6.2. BUN 53, creatinine 12.4. ASSESSMENT AND PLAN: Noncompliance with dialysis with secondary volume overload, hyperkalemia, heart failure (acute on chronic systolic and diastolic) and possible myocardial infarction. The patient has been admitted. We will consult Cardiology. Cardiac monitoring. Consult Nephrology. We are going to try to get him dialyzed soon. Home meds. Deep venous thrombosis prophylaxis. Full code. Long-term prognosis is guarded. I told him to please not missed dialysis. LISA DR: Margie TID: [id number]
[2021-10-15] MEDS ORDERED: DIALYSIS PATIENT. MC PRN ×2 (17:45)
[2021-10-15] MEDS ORDERED: IV NORMAL SALINE 1000ML BAG 1,000 ML IV PRN ×2 (17:45)
[2021-10-15 17:53] VITALS: BP_SYST 151; BP_SYST 158; BP_DIAS 66; BP_DIAS 70
[2021-10-15 18:53] VITALS: BP 158/70
--- NOTE | 2021-10-15 19:13 | NUR ---
Spoke with Dr. Trujillo, ok with turning off nitro gtt. Patient going to dialysis.
[2021-10-15 19:17] VITALS: BP 137/62
[2021-10-15 22:00] VITALS: BP 151/73
[2021-10-15] MEDS: GABAPENTIN 300 MG CAPSULE. PO SCH (22:00)
[2021-10-16 03:10] VITALS: BP 171/70
[2021-10-16 07:00] VITALS: BP 175/85
[2021-10-16] MEDS ORDERED: IV NORMAL SALINE 1000ML BAG 1,000 ML IV PRN ×2 (07:30)
[2021-10-16] MEDS ORDERED: DIALYSIS PATIENT. MC PRN ×2 (08:00)
[2021-10-16] MEDS ORDERED: FERRIC CITRATE PO SCH (09:00)
[2021-10-16] MEDS ORDERED: FERROUS SULFATE 325 MG TABLET. PO SCH ×2 (09:00→21:00)
[2021-10-16] MEDS ORDERED: ALLOPURINOL 300 MG TABLET. PO SCH ×2 (09:00→21:00)
[2021-10-16] MEDS ORDERED: ATORVASTATIN CALCIUM 10 MG TABLET. PO SCH ×2 (09:00→21:00)
[2021-10-16] MEDS: INSULIN GLARGINE SYRINGE. SQ SCH ×2 (09:00→21:00)
[2021-10-16] MEDS ORDERED: MAGNESIUM CITRATE 296 ML SOLUTION. PO SCH (09:00)
[2021-10-16] MEDS ORDERED: FOLIC/VIT B COMP W-C (RENAL) TABLET. PO SCH ×2 (09:00→21:00)
[2021-10-16] MEDS ORDERED: GLYB5TAB3 PO ×2 (10:38)
[2021-10-16] MEDS ORDERED: AMIT50TA PO (10:38)
[2021-10-16] MEDS ORDERED: MAGN250T10 PO (10:38)
[2021-10-16] MEDS ORDERED: ASPI-630 PO (10:38)
[2021-10-16] MEDS ORDERED: CALC1TAB PO (10:38)
[2021-10-16] MEDS ORDERED: FURO40TA4 PO (10:38)
[2021-10-16] MEDS ORDERED: GABA300C18 PO (10:38)
--- NOTE | 2021-10-16 10:42 | PDOC ---
[employer] PROGRESS NOTE Date of Service DOS: DATE: 10/16/21 TIME: 10:40 Chief Complaint Chief Complaint Noncompliance with dialysis with secondary volume overload Hyperkalemia Heart failure (acute on chronic systolic and diastolic) Possible myocardial infarction. History of Present Illness History of Present Illness 10/16/21 Patient seen and examined while undergoing dialysis He states he feels well and would like to go home Awaiting nephrology and cardiology input Chart reviewed Discussed with RN Vitals/I&O Vitals/I&O: Vital Signs Date Time Temp Pulse Resp B/P (MAP) Pulse Ox O2 Delivery O2 Flow Rate FiO2 10/16/21 08:00 Room Air 10/16/21 07:00 97.3 82 20 175/85 (115) 94 97.3 I & O 10/15/21 10/15/21 10/16/21 15:00 23:00 07:00 Intake Total 250 ml 0 ml Output Total 100 ml Balance 150 ml 0 ml Physical Exam Lungs: Clear, Other Labs Labs: Laboratory Tests Test 10/15/21 13:40 10/15/21 18:14 10/16/21 07:54 Lactic Acid Level 1.5 mmol/L (0.4-2.0) Glucose (Fingerstick) 127 mg/dL (70-99) 156 mg/dL (70-99) Assessment and Plan Assessmemt and Plan Problems Medical Problems: (1) Elevated troponin Status: Acute (2) End stage renal disease Status: Acute (3) Fluid overload Status: Acute (4) Hyperkalemia Status: Acute Noncompliance with dialysis with secondary volume overload Hyperkalemia, heart failure (acute on chronic systolic and diastolic) Possible myocardial infarction Plan Consult Cardiology and nephrology Cardiac monitoring Cont dialysis Cont Home meds Deep venous thrombosis prophylaxis. Full code Long-term prognosis is guarded Comment Review of Relevant I have reviewed the following items la (where applicable) has been applied. Medications: Current Medications Medications (Trade) Dose Ordered Sig/Clyde Route PRN Reason Start Time Stop Time Status Last Admin Dose Admin Calcium Gluconate (Calcium Gluconate) 1,000 mg 1X ONCE IVP 10/15/21 12:45 10/15/21 12:50 DC 10/15/21 13:06 Insulin Human Regular (HumuLIN R VIAL) 10 unit 1X ONCE IV 10/15/21 12:45 10/15/21 12:50 DC 10/15/21 13:36 Dextrose (Dextrose 50%-Water Syringe) 50 gm 1X ONCE IV 10/15/21 12:45 10/15/21 12:50 DC 10/15/21 13:33 Justifications for Admission Other Justification MARILYN REZA III DO Oct 16, 2021 10:42
--- NOTE | 2021-10-16 11:21 | PDOC2 ---
DANIAL RAVI FIBERGLASSER 10/16/21 1121: CARDIAC CONSULT DATE OF CONSULT Date of Consult DATE: 10/16/21 TIME: 11:15 REASON FOR CONSULT Reason for Consult: volume overload, elevated trop REFERRING PHYSICIAN Referring Physician: Fatoumata SOURCE Source: Chart review, Patient HISTORY OF PRESENT ILLNESS HISTORY OF PRESENT ILLNESS This is a pleasant 66 yo male admitted for complains of shortness of breath. Apparently he missed his HD [place] last week and yesterday his dialysis was not performed as his fistula got infiltrated in the process of starting dialysis. He has been having SOA in the last few days and worse Friday and positive for PND, orthopnea. No significant leg swelling. NO fever or chills. Denies any chest pain or palpitations. He has not been checking his BG for about 2 months now as his glucometer got broken. He checks his BP at home and has been ok. He is compliant with his medications. PAST MEDICAL HISTORY Cardiovascular: CHF, HTN, Hyperlipidemia GI: GERD Heme/Onc: Anemia NOS Musculoskeletal: Osteoarthritis Rheumatologic: Gout Endocrine: Diabetes PAST SURGICAL HISTORY Past Surgical History: Appendectomy, Cholecystectomy, Other (LA AV dialytsis fistula, vasectomy) FAMILY HISTORY Family History: Other (PKD) SOCIAL HISTORY Smoke: No ALCOHOL: none Drugs: None Lives: with Family CURRENT MEDICATIONS CURRENT MEDICATIONS Current Medications Medications (Trade) Dose Ordered Sig/Clyde Route PRN Reason Start Time Stop Time Status Last Admin Dose Admin Calcium Gluconate (Calcium Gluconate) 1,000 mg 1X ONCE IVP 10/15/21 12:45 10/15/21 12:50 DC 10/15/21 13:06 Insulin Human Regular (HumuLIN R VIAL) 10 unit 1X ONCE IV 10/15/21 12:45 10/15/21 12:50 DC 10/15/21 13:36 Dextrose (Dextrose 50%-Water Syringe) 50 gm 1X ONCE IV 10/15/21 12:45 10/15/21 12:50 DC 10/15/21 13:33 ALLERGIES ALLERGIES: Coded Allergies: I S O L A T I O N *CONTACT* (Verified Allergy, Unknown, 05/06/17) mrsa No Known Medication Allergies (Verified Allergy, Unknown, 05/06/17) ROS Review of System 14 point ROS evaluated with pertinent positives noted per HPI PHYSICAL EXAM General: Alert, Oriented X3, Cooperative, No acute distress HEENT: Atraumatic, Mucous membr. moist/pink Lungs: Clear to auscultation, Other (diminished bases) Abdomen: Soft, No tenderness, Other (obese) Extremities: No cyanosis, Other (1+ bilateral LE pitting edema) Skin: No breakdown, No significant lesion Neuro: Normal speech, Sensation intact Psych/Mental Status: Mental status NL, Mood NL MUSCULOSKELETAL: Osteoarthritic changes both hands VITALS/I&O VITALS/I&O: Vital Signs Date Time Temp Pulse Resp B/P (MAP) Pulse Ox O2 Delivery O2 Flow Rate FiO2 10/16/21 08:00 Room Air 10/16/21 07:00 97.3 82 20 175/85 (115) 94 97.3 I & O 10/15/21 10/15/21 10/16/21 15:00 23:00 07:00 Intake Total 250 ml 0 ml Output Total 100 ml Balance 150 ml 0 ml LABS Lab: Laboratory Tests Test 10/15/21 13:40 10/15/21 18:14 10/16/21 07:54 Lactic Acid Level 1.5 mmol/L (0.4-2.0) Glucose (Fingerstick) 127 mg/dL (70-99) H 156 mg/dL (70-99) H ECHOCARDIOGRAM ECHOCARDIOGRAM <Conclusion> The left ventricle is normal size. The left ventricular systolic function is normal and the ejection fraction is within normal range. LV ejection fraction 55 to 60 %. There is normal LV segmental wall motion. There is borderline to mild concentric left ventricular hypertrophy. Doppler and Color Flow revealed trace aortic regurgitation. There is no significant aortic valvular stenosis. Doppler and Color Flow revealed no mitral valve regurgitation noted. Doppler and Color Flow revealed trace tricuspid regurgitation. Estimated PAP 35 mmHg. The aortic root is mildly enlarged. DATE: 08/07/21 [id number] STRESS TEST STRESS TEST Conclusion 1. Abnormal baseline EKG but no EKG evidence of stress-induced ischemia. 2. Nuclear imaging shows no reversible ischemia or infarct. 3. Normal left ventricular systolic function with an ejection fraction of 68%. 4. Moderately low risk Lexiscan nuclear stress test. DATE: 08/07/21 [id number] ASSESSMENT/PLAN ASSESSMENT/PLAN 1. Acute on chronic diastolic CHF: due to missed dialysis 2. Mild troponin elevation: demand mediated, type 2 3. HTN urgency 4. ESRD with hyperkalemia 5. DM2: has a broken home glucometer per PCP Recommendations 1. Will obtain copy of EKG, CP free. Continue secondary prevention measures 2. ASA. Restart home imdur. Start norvasc. Check lipids and start statin per level 3. Fluid off loading for today JOHN SORENSON MD 10/16/212013: CARDIAC CONSULT ASSESSMENT/PLAN ASSESSMENT/PLAN Patient seen and examined. Agree with DB2 DBA's assessment and plan. Acute on chr diastolic HF secondary to missed HD Continue fluid removal per nephrology team Slight trop elevation prob demand ischemia Start norvasc for better BP control Thank you for your consultation DANIAL RAVI APRN Oct 16, 2021 11:21 JOHN SORENSON MD Oct 16, 2021 20:14
--- NOTE | 2021-10-16 11:54 | PDOC2 ---
CONSULT Date of Consult Date of Consult DATE: 10/16/21 TIME: 11:48 Reason for Consult Reason for Consult: SOB AND ESRD Referring Physician Referring Physician: JUAQUIN Identification/Chief Complaint Chief Complaint SOB Source Source: Chart review, Patient History of Present Illness Reason for Visit: THIS IS A 66 YR OLD WITH SOB. HAS ESRD AN ON OP HD MWF. MISSED A TX. HAS A LEFT ARM AVF FOR HIS ACCESS. ON ADMIT HE IS VOLUME OVERLOADED. BNP UP AND IMAGING C/W CHF. K OF 6.2. 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 HAS OCC NON COMPLIANCE. 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 CARDIOLOGY EVALUATION ONGOING Past Medical History Cardiovascular: HTN, Other Pulmonary: No pertinent hx CENTRAL NERVOUS SYSTEM: Other GI: No pertinent hx Heme/Onc: Anemia NOS Hepatobiliary: No pertinent hx Psych: No pertinent hx Rheumatologic: No pertinent hx Infectious disease: No pertinent hx Renal/: Chronic renal failure, Other Endocrine: Diabetes, Hyperparathyroidism Past Surgical History Past Surgical History HX OF RENAL TX-FAILED AND NOW ESRD, LEFT ARM BC AVF Past Surgical History: Other Family History Family History: Diabetes, Hypertension, Other Social History ALCOHOL: none Drugs: None Lives: Alone Current Problem List Problem List Problems Medical Problems: (1) Elevated troponin Status: Acute (2) End stage renal disease Status: Acute (3) Fluid overload Status: Acute (4) Hyperkalemia Status: Acute Current Medications Current Medications Current Medications Nitroglycerin/ Dextrose 250 ml @ 1.5 mls/hr 1X ONCE IV Last administered on 10/15/21at 10:16; Start 10/15/21 at 09:45; Stop 10/22/21 at 08:24 Calcium Gluconate (Calcium Gluconate) 1,000 mg 1X ONCE IVP Last administered on 10/15/21at 13:06; Start 10/15/21 at 12:45; Stop 10/15/21 at 12:50; Status DC Albuterol Sulfate (Ventolin Neb Soln) 2.5 mg 1X ONCE NEB ; Start 10/15/21 at 12:45; Stop 10/15/21 at 12:50; Status DC Insulin Human Regular (HumuLIN R VIAL) 10 unit 1X ONCE IV Last administered on 10/15/21at 13:36; Start 10/15/21 at 12:45; Stop 10/15/21 at 12:50; Status DC Dextrose (Dextrose 50%-Water Syringe) 50 gm 1X ONCE IV Last administered on 10/15/21at 13:33; Start 10/15/21 at 12:45; Stop 10/15/21 at 12:50; Status DC Sodium Chloride 1,000 ml @ 1,000 mls/hr Q1H PRN IV hypotension; Start 10/15/21 at 17:45; Stop 10/15/21 at 23:44; Status DC Sodium Chloride 1,000 ml @ 400 mls/hr Q2H30M PRN IV PATENCY; Start 10/15/21 at 17:45; Stop 10/16/21 at 05:44; Status DC Info (PHARMACY MONITORING -- do not chart) 1 each PRN DAILY PRN MC SEE COMMENTS; Start 10/15/21 at 17:45; Status UNV Info (PHARMACY MONITORING -- do not chart) 1 each PRN DAILY PRN MC SEE COMMENTS; Start 10/15/21 at 17:45; Status Cancel Allopurinol (Zyloprim) 150 mg DAILY PO ; Start 10/16/21 at 09:00 Ferrous Sulfate (Feosol) 325 mg DAILY PO ; Start 10/16/21 at 09:00 Vitamin B Complex/ Vitamin C (Trisha-Michelle) 1 tab DAILY PO ; Start 10/16/21 at 09:00 Gabapentin (Neurontin) 300 mg QHS PO ; Start 10/15/21 at 22:00 Non-Formulary Medication (Ferric Citrate ) 5 tab TID PO ; Start 10/16/21 at 09:00; Status UNV Magnesium Citrate (Citroma) 296 ml DAILY PO ; Start 10/16/21 at 09:00 Insulin Glargine (Lantus Syringe) 25 unit BID SQ ; Start 10/16/21 at 09:00 Atorvastatin Calcium (Lipitor) 10 mg DAILY PO ; Start 10/16/21 at 09:00 Sodium Chloride 1,000 ml @ 1,000 mls/hr Q1H PRN IV hypotension; Start 10/16/21 at 07:30; Stop 10/16/21 at 13:29 Sodium Chloride 1,000 ml @ 400 mls/hr Q2H30M PRN IV PATENCY; Start 10/16/21 at 07:30; Stop 10/16/21 at 19:29 Info (PHARMACY MONITORING -- do not chart) 1 each PRN DAILY PRN MC SEE COMMENTS ; Start 10/16/21 at 08:00; Status UNV Info (PHARMACY MONITORING -- do not chart) 1 each PRN DAILY PRN MC SEE COMMENTS; Start 10/16/21 at 08:00 Active Scripts Active Reported Furosemide 40 Mg Tablet 1 Tab PO DAILY Amitriptyline Hcl 50 Mg Tablet 1 Tab PO QHS Magnesium (Magnesium Oxide) 250 Mg Tablet 1 Tab PO DAILY 30 Days Caltrate 600 + D Tablet (Calcium Carbonate/Vitamin D3) 1 Each Tablet 1 Each PO DAILY Aspirin 81 Mg Tab.chew 1 Tab PO DAILY Glyburide 5 Mg Tablet 5 Mg PO DAILYWDIN Glyburide 5 Mg Tablet 2 Tab PO DAILYWBKFT Gabapentin (Gabapentin) 300 Mg Capsule 300 Mg PO HS Ferric Citrate 210 Mg Tablet 5 Tab PO TID 30 Days Novolin N (Nph, Human Insulin Isophane) 100 Unit/1 Ml Vial 25 Unit SQ BID Pravastatin Sodium 40 Mg Tablet 1 Tab PO DAILY Renal-Michelle Tablet (Folic Acid/Vit Bcomp,C) 0.8 Mg Tablet 1 Tab PO DAILY 30 Days Magnesium Citrate 100 Mg Tablet 250 Mg PO DAILY Allopurinol 300 Mg Tablet 150 Mg PO DAILY Iron (Ferrous Sulfate) 325 Mg Tablet 325 Mg PO DAILY Gabapentin (Gabapentin) 300 Mg Capsule 300 Mg PO DAILY Allergies Allergies: Coded Allergies: I S O L A T I O N *CONTACT* (Verified Allergy, Unknown, 05/06/17) mrsa No Known Medication Allergies (Verified Allergy, Unknown, 05/06/17) ROS Review of System AVF WITH A GOOD THRILL AND BRUIT General: YES: Fatigue PSYCHOLOGICAL ROS: YES: Anxiety Eyes: Yes Decreased vision HEENT: YES: Oscar ALLERGY AND IMMUNOLOGY: YES: Seasonal Allergies Respiratory: YES: Cough, Orthopnea, Shortness of breath Gastrointestinal: Yes Constipation Genitourinary: YES Other (ANURIA) Musculoskeletal: Yes Muscular Weakness Neurological: Yes Weakness Skin: Yes Dry Skin Physical Exam General: Alert, Oriented X3, Cooperative, No acute distress HEENT: PERRLA, EOMI Lungs: Clear to auscultation, Normal air movement Heart: Regular rate Abdomen: Normal bowel sounds, Soft, No tenderness Extremities: No cyanosis Skin: No breakdown Neuro: Normal speech Psych/Mental Status: Mental status NL, Mood NL MUSCULOSKELETAL: No joint tenderness, No deformity Vitals VITALS Vital Signs Date Time Temp Pulse Resp B/P (MAP) Pulse Ox O2 Delivery O2 Flow Rate FiO2 10/16/21 08:00 Room Air 10/16/21 07:00 97.3 82 20 175/85 (115) 94 97.3 Labs Labs Laboratory Tests Test 10/15/21 09:52 10/15/21 10:04 10/15/21 10:13 10/15/21 13:40 White Blood Count 5.8 x10^3/uL (4.0-11.0) Red Blood Count 3.72 x10^6/uL (4.30-5.70) Hemoglobin 12.2 g/dL (13.0-17.5) Hematocrit 38.2 % (39.0-53.0) Mean Corpuscular Volume 103 fL (79-100) Mean Corpuscular Hemoglobin 33 pg (25-35) Mean Corpuscular Hemoglobin Concent 32 g/dL (31-37) Red Cell Distribution Width 14.1 % (11.5-14.5) Platelet Count 146 x10^3/uL (140-400) Neutrophils (%) (Auto) 62 % (31-73) Lymphocytes (%) (Auto) 27 % (24-48) Monocytes (%) (Auto) 7 % (0-9) Eosinophils (%) (Auto) 3 % (0-3) Basophils (%) (Auto) 1 % (0-3) Neutrophils # (Auto) 3.6 x10^3/uL (1.8-7.7) Lymphocytes # (Auto) 1.6 x10^3/uL (1.0-4.8) Monocytes # (Auto) 0.4 x10^3/uL (0.0-1.1) Eosinophils # (Auto) 0.1 x10^3/uL (0.0-0.7) Basophils # (Auto) 0.1 x10^3/uL (0.0-0.2) Sodium Level 146 mmol/L (136-145) Potassium Level 6.2 mmol/L (3.5-5.1) Chloride Level 103 mmol/L (98-107) Carbon Dioxide Level 27 mmol/L (21-32) Anion Gap 16 (6-14) Blood Urea Nitrogen 53 mg/dL (8-26) Creatinine 12.4 mg/dL (0.7-1.3) Estimated GFR (Cockcroft-Gault) 4.1 BUN/Creatinine Ratio 4 (6-20) Glucose Level 176 mg/dL (70-99) Lactic Acid Level 2.6 mmol/L (0.4-2.0) 1.5 mmol/L (0.4-2.0) Calcium Level 8.4 mg/dL (8.5-10.1) Magnesium Level 3.2 mg/dL (1.8-2.4) Total Bilirubin 1.1 mg/dL (0.2-1.0) Aspartate Amino Transf (AST/SGOT) 8 U/L (15-37) Alanine Aminotransferase (ALT/SGPT) 17 U/L (16-63) Alkaline Phosphatase 66 U/L (46-116) Troponin I High Sensitivity 1066 ng/L (4-75) YG-Yko-I-Type Natriuretic Peptide > 83166 pg/mL (0-124) Total Protein 7.6 g/dL (6.4-8.2) Albumin 3.7 g/dL (3.4-5.0) Albumin/Globulin Ratio 0.9 (1.0-1.7) Hepatitis B Surface Antigen Nonreactive (Nonreactive) Influenza Type A Antigen Negative (NEGATIVE) Influenza Type B Antigen Negative (NEGATIVE) SARS-CoV-2 Antigen (Rapid) Negative (NEGATIVE) Prothrombin Time 12.4 SEC (11.7-14.0) Prothromb Time International Ratio 0.9 (0.8-1.1) Activated Partial Thromboplast Time 27 SEC (24-38) D-Dimer (Poornima) 0.57 ug/mlFEU (0.00-0.50) Test 10/15/21 18:14 10/16/21 07:54 10/16/21 11:22 Glucose (Fingerstick) 127 mg/dL (70-99) 156 mg/dL (70-99) 137 mg/dL (70-99) Laboratory Tests Test 10/15/21 13:40 10/15/21 18:14 10/16/21 07:54 10/16/21 11:22 Lactic Acid Level 1.5 mmol/L (0.4-2.0) Glucose (Fingerstick) 127 mg/dL (70-99) 156 mg/dL (70-99) 137 mg/dL (70-99) Images Images PATIENT: CARLINE JEFFERSON ACCOUNT: [id number] : 1955 LOCATION: ER AGE: 66 SEX: M EXAM STATUS: PRE ER ORD. PHYSICIAN: TOBY SON MD REASON: dyspnea PROCEDURE: CHEST AP ONLY AP chest. HISTORY: Dyspnea AP view was taken of the chest. Heart is mildly prominent. There are inte rstitial changes from the lungs from interstitial infiltrates or pulmonary edema. There is no definite effusion. IMPRESSION: 1. Interstitial infiltrates or pulmonary edema. Electronically signed by: Oscar Vera MD (10/15/2021 10:15 AM) [facility] Assessment/Plan Assessment/Plan IMP HYPERKALEMIA [id number] ARM BC AVF VOLUME OVERLOAD HX OF FAILED RENAL TX HX OF ADPKD ANEMIA-CONTROLLED NON COMPLIANCE PLAN HD TODAY UF TO TW WILL CHALLENGE DW CARDIOLOGY EVAL AND TX WILL FOLLOW ABHISHEK DUNNE MD Oct 16, 2021 11:54
[2021-10-16] MEDS ORDERED: FERR210T PO (12:16)
[2021-10-16] MEDS: SEVELAMER CARBONATE 800 MG TABLET. PO SCH ×2 (12:45→17:23)
[2021-10-16] MEDS ORDERED: MAGNESIUM OXIDE 400 MG TABLET PO SCH ×2 (13:00→21:00)
[2021-10-16 13:01] LABS: CHOLESTEROL/HDL RATIO 3.6
[2021-10-16] MEDS: ISOSORBIDE MONONITRATE ER 30 MG TAB.ER.24H PO SCH (13:07)
--- NOTE | 2021-10-16 14:34 | NUR ---
SS following for discharge planning. SS reviewed pt chart and discussed with pt RN. Pt is from home with spouse and is currently on room air. COVID19 negative. Cardiology and Nephrology following. Pt has outpatient hemodialysis chair time at [facility], ; fax [phone], Friday, Friday, and Friday. SS will continue to follow for discharge planning.
[2021-10-16 14:55] VITALS: BP 145/75
--- NOTE | 2021-10-16 15:54 | EKG ---
[facility] [address] [place] [address] Test Date: 2021-10-16 Test Time: 15:49:54 Pat Name: CARLINE JEFFERSON Department: Room: [facility] Gender: M Branch Operations Manager: SOCO : 1955 Requested By: DANIAL RAVI Order Number: [id number] Reading MD: Curly Trujillo MD Measurements Intervals [place] Rate: 74 P: -43 TX: 192 QRS: 38 QRSD: 108 T: -60 QT: 406 QTc: 451 Interpretive Statements SR PACS SEPTAL INFARCT PATTERN NON-SPECIFIC ST/T CHANGES Electronically Signed On 10-22-2021 11:30:57 AOC AADC OPERATIONS STAFF OFFICER by Curly Trujillo MD
[2021-10-16 19:00] VITALS: BP 174/80
[2021-10-16] MEDS: GABAPENTIN 300 MG CAPSULE. PO SCH (22:08)
[2021-10-16 23:01] VITALS: BP 117/55
[2021-10-17 02:54] VITALS: BP 142/66
[2021-10-17 06:35] LABS: CALCIUM 8.6 mg/dL (8.5-10.1); CREATININE 9.5 mg/dL (0.7-1.3); GFR 5.5; POTASSIUM 5.2 mmol/L (3.5-5.1)
[2021-10-17 07:00] VITALS: BP 152/67
[2021-10-17] MEDS: SEVELAMER CARBONATE 800 MG TABLET. PO SCH ×3 (08:41→16:36)
[2021-10-17] MEDS: ISOSORBIDE MONONITRATE ER 30 MG TAB.ER.24H PO SCH (08:42)
[2021-10-17] MEDS: INSULIN GLARGINE SYRINGE. SQ SCH (08:44)
--- NOTE | 2021-10-17 09:24 | PDOC ---
[employer] PROGRESS NOTE Date of Service DOS: DATE: 10/17/21 TIME: 09:23 Chief Complaint Chief Complaint Noncompliance with dialysis with secondary volume overload Hyperkalemia Heart failure (acute on chronic systolic and diastolic) Possible myocardial infarction. History of Present Illness History of Present Illness 10/17/21 Patient seen and examined at beside He still feels well and we are hopeful to d/c later today or tomorrow Chart reviewed Discussed with RN 10/16/21 Patient seen and examined while undergoing dialysis He states he feels well and would like to go home Awaiting nephrology and cardiology input Chart reviewed Discussed with RN Vitals/I&O Vitals/I&O: Vital Signs Date Time Temp Pulse Resp B/P (MAP) Pulse Ox O2 Delivery O2 Flow Rate FiO2 10/17/21 08:42 85 152/67 10/17/21 07:00 97.2 18 94 Nasal Cannula 2.0 97.2 I & O 10/16/21 10/16/21 10/17/21 15:00 23:00 07:00 Intake Total 180 ml 330 ml 100 ml Output Total 0 ml Balance 180 ml 330 ml 100 ml Physical Exam General: Alert, Oriented X3, Cooperative, No acute distress Heart: Regular rate Lungs: Clear, Other Abdomen: Soft, No tenderness, Other (obese) Extremities: No cyanosis, Other (1+ bilateral LE pitting edema) Skin: No breakdown, No significant lesion Labs Labs: Laboratory Tests Test 10/16/21 11:22 10/16/21 12:25 10/16/21 16:41 10/16/21 19:47 Glucose (Fingerstick) 137 mg/dL (70-99) 175 mg/dL (70-99) 159 mg/dL (70-99) Triglycerides Level 127 mg/dL (0-150) Cholesterol Level 121 mg/dL (0-200) LDL Cholesterol, Calculated 62 mg/dL (0-100) VLDL Cholesterol, Calculated 25 mg/dL (0-40) Non-HDL Cholesterol Calculated 87 mg/dL (0-129) HDL Cholesterol 34 mg/dL (40-60) Cholesterol/HDL Ratio 3.6 Test 10/17/21 05:00 10/17/21 08:43 Sodium Level 144 mmol/L (136-145) Potassium Level 5.2 mmol/L (3.5-5.1) Chloride Level 101 mmol/L (98-107) Carbon Dioxide Level 29 mmol/L (21-32) Anion Gap 14 (6-14) Blood Urea Nitrogen 35 mg/dL (8-26) Creatinine 9.5 mg/dL (0.7-1.3) Estimated GFR (Cockcroft-Gault) 5.5 Glucose Level 138 mg/dL (70-99) Calcium Level 8.6 mg/dL (8.5-10.1) Glucose (Fingerstick) 162 mg/dL (70-99) Assessment and Plan Assessmemt and Plan Problems Medical Problems: (1) Elevated troponin Status: Acute (2) End stage renal disease Status: Acute (3) Fluid overload Status: Acute (4) Hyperkalemia Status: Acute Assessment Noncompliance with dialysis with secondary volume overload Hyperkalemia, heart failure (acute on chronic systolic and diastolic) Possible myocardial infarction Plan Appreciate cardio and renal input Cardiac monitoring Cont dialysis Cont Home meds Deep venous thrombosis prophylaxis Full code Comment Review of Relevant I have reviewed the following items la (where applicable) has been applied. Medications: Current Medications Medications (Trade) Dose Ordered Sig/Clyde Route PRN Reason Start Time Stop Time Status Last Admin Dose Admin Isosorbide Mononitrate (Imdur) 60 mg DAILY PO 10/16/21 12:00 10/17/21 08:42 Sevelamer Carbonate (Renvela) 1,600 mg TIDWMEALS PO 10/16/21 12:45 10/17/21 08:41 Allopurinol (Zyloprim) 150 mg HS PO 10/16/21 21:00 10/16/21 22:08 Atorvastatin Calcium (Lipitor) 10 mg HS PO 10/16/21 21:00 10/16/21 22:07 Ferrous Sulfate (Feosol) 325 mg HS PO 10/16/21 21:00 10/16/21 22:07 Vitamin B Complex/ Vitamin C (Trisha-Michelle) 1 tab HS PO 10/16/21 21:00 10/16/21 22:08 Magnesium Oxide (Magnesium Oxide) 200 mg HS PO 10/16/21 21:00 10/16/21 22:08 Justifications for Admission Other Justification MARILYN REZA III DO Oct 17, 2021 09:24
[2021-10-17] MEDS ORDERED: SEVE800T9 PO (10:11)
[2021-10-17] MEDS ORDERED: ISOS30TA68 PO (10:11)
--- NOTE | 2021-10-17 10:12 | SNU/HH DC ---
DISCHARGE WITH HOME HEALTH DISCHARGE INFORMATION: Final Diagnosis: Problems Medical Problems: (1) Elevated troponin Status: Acute (2) End stage renal disease Status: Acute (3) Fluid overload Status: Acute (4) Hyperkalemia Status: Acute Condition on Discharge: Stable CODE STATUS: Code Status: Full HOME HEALTH: Face to Face: I certify this patient is under my care and that I, or a nurse practitioner or physician's field research assistant working with me, had a face to face encounter that meets the physician face to face encounter requirements with this patient on []. Medical Complications: Other (ESRD) Mcc For: Assess & Educate Safety RN For Eval/Treatment: Yes Physical Therapy For: Evalulation/Treatment Occupational Therapy For: Evaluation/Treatment Home Health Aide For: Self-care MAINTENANCE ASSISTANT For: Community Resources Pt Meets Homebound Status: Unsteady balance w/ amb, POST DISCHARGE ORDERS: Activity Instructions for Disc: Resume previous activity, Activity as tolerated Weight Bearing Status after Di: No restrictions Bathing Instructions: Shower-keep dressing dry DIET AFTER DISCHARGE: Renal Wound/Incision Care: Keep wound/cast CDI TREATMENT/EQUIPMENT ORDERS: Adaptive Equipment Issued: None CERTIFICATION STATEMENT: Certification Statement: Certification Statement: Based on the above finding, I certify that this patient is confined to the home and needs intermittent fpc care, physical therapy and/or speech therapy, or continues to need occupational therapy.~ This patient is under my care, and I have initiated the establishment of the plan of care.~ This patient will be followed by myself or a community physician who will periodically review the plan of care. Home Meds Active Scripts Sevelamer Carbonate (RENVELA) 800 Mg Tablet, 1600 MG PO TIDWMEALS for . for 30 Days, #180 TAB Prov:CASTLE,NIAL K III DO 10/17/21 Isosorbide Mononitrate (ISOSORBIDE MONONITRATE ER) 30 Mg Tab.er.24h, 60 MG PO DAILY for . for 90 Days, #180 TAB.SR Prov:CASTLE,NIAL K III DO 10/17/21 Reported Medications Ferric Citrate (Ferric Citrate) 210 Mg Tablet, 5 TAB PO TID for for 30 Days, #450 TAB 0 Refills 10/16/21 Furosemide (FUROSEMIDE) 40 Mg Tablet, 1 TAB PO DAILY for , #30 TAB 5 Refills 10/16/21 Amitriptyline Hcl (AMITRIPTYLINE HCL) 50 Mg Tablet, 1 TAB PO QHS for , #30 TAB 1 Refill 10/16/21 Magnesium Oxide (MAGNESIUM) 250 Mg Tablet, 1 TAB PO DAILY for for 30 Days, #30 TAB 0 Refills 10/16/21 Calcium Carbonate/Vitamin D3 (CALTRATE 600 + D TABLET) 1 Each Tablet, 1 EACH PO DAILY for , TAB 10/16/21 Aspirin (ASPIRIN) 81 Mg Tab.chew, 1 TAB PO DAILY for , #30 TAB 3 Refills 10/16/21 Glyburide (GLYBURIDE) 5 Mg Tablet, 5 MG PO DAILYWDIN for , TAB 10/16/21 Glyburide (GLYBURIDE) 5 Mg Tablet, 2 TAB PO DAILYWBKFT for dm, #360 TAB 3 Refills 10/16/21 Gabapentin (GABAPENTIN ) 300 Mg Capsule, 300 MG PO HS for NEUROGENIC PAIN, CAP 10/16/21 Nph, Human Insulin Isophane (NOVOLIN N) 100 Unit/1 Ml Vial, 25 UNIT SQ BID for , EACH 10/15/21 Pravastatin Sodium (PRAVASTATIN SODIUM) 40 Mg Tablet, 1 TAB PO DAILY for 10/15/21 Folic Acid/Vit Bcomp,C (Renal-Michelle Tablet) 0.8 Mg Tablet, 1 TAB PO DAILY for for 30 Days, #30 TAB 0 Refills 10/15/21 Allopurinol (ALLOPURINOL) 300 Mg Tablet, 150 MG PO DAILY, TAB 03/26/17 Ferrous Sulfate (IRON) 325 Mg Tablet, 325 MG PO DAILY 11/23/15 Gabapentin (GABAPENTIN ) 300 Mg Capsule, 300 MG PO DAILY for , CAP 11/23/15 Discontinued Reported Medications Multivitamin (MULTI-DAY VITAMINS) 1 Each Tablet, 1 TAB PO DAILY, #30 TAB 03/26/17 Sodium Bicarbonate (SODIUM BICARBONATE) 650 Mg Tablet, 650 MG PO DAILY 11/23/15 Glyburide (GLYBURIDE) 5 Mg Tablet, 5 MG PO DAILY, TAB 11/23/15 Furosemide (FUROSEMIDE) 20 Mg Tablet, 20 MG PO DAILY, TAB 11/23/15 CASTLE,NIAL K III DO Oct 17, 2021 10:12
[2021-10-17 10:16] VITALS: BP 164/70
--- NOTE | 2021-10-17 11:28 | NUR ---
SS following up with discharge planning. SS reviewed pt chart and discussed with pt RN. Pt is from home with spouse and is currently on room air. COVID19 negative. Cardiology and Nephrology following. Pt has outpatient hemodialysis chair time at [facility], ; fax [phone], Friday, Friday, and Friday. Hemodialysis today. Discharge order on the chart for home with self care. Addendum: 10/17/21 at 1215 by AILIN CARDONA SS Discharge orders received for home with home healthcare and script received for overnight oximetry on room air. Discharge orders and referral phoned and faxed to [facility], ; fax [phone]. Script and clinical for overnight oximetry phoned and faxed to [facility], ; fax [phone]. Pt's RN notified.
--- NOTE | 2021-10-17 11:30 | PDOC ---
Renal-Progress Notes Subjective Notes Notes STILL HAS SOME SOB History of Present Illness Hx of present illness STABLE Vitals Vitals Vital Signs Date Time Temp Pulse Resp B/P (MAP) Pulse Ox O2 Delivery O2 Flow Rate FiO2 10/17/21 10:16 97.6 72 18 164/70 (101) 96 Room Air 97.6 10/17/21 07:00 2.0 Weight Weight [ ] I.O. Intake and Output Intake and Output 10/17/21 07:00 Intake Total 610 ml Output Total 0 ml Balance 610 ml Intake Oral 610 ml Output Urine Total 0 ml Labs Labs Laboratory Tests Test 10/16/21 12:25 10/16/21 16:41 10/16/21 19:47 10/17/21 05:00 Triglycerides Level 127 mg/dL (0-150) Cholesterol Level 121 mg/dL (0-200) LDL Cholesterol, Calculated 62 mg/dL (0-100) VLDL Cholesterol, Calculated 25 mg/dL (0-40) Non-HDL Cholesterol Calculated 87 mg/dL (0-129) HDL Cholesterol 34 mg/dL (40-60) Cholesterol/HDL Ratio 3.6 Glucose (Fingerstick) 175 mg/dL (70-99) 159 mg/dL (70-99) Sodium Level 144 mmol/L (136-145) Potassium Level 5.2 mmol/L (3.5-5.1) Chloride Level 101 mmol/L (98-107) Carbon Dioxide Level 29 mmol/L (21-32) Anion Gap 14 (6-14) Blood Urea Nitrogen 35 mg/dL (8-26) Creatinine 9.5 mg/dL (0.7-1.3) Estimated GFR (Cockcroft-Gault) 5.5 Glucose Level 138 mg/dL (70-99) Calcium Level 8.6 mg/dL (8.5-10.1) Test 10/17/21 08:43 Glucose (Fingerstick) 162 mg/dL (70-99) Review of Systems Constitutional: yes: alert, oriented Ears/Nose/Throat: Yes: no symptom reported Eyes: Yes: no symptom reported Pulmonary: Yes dyspnea Cardiovascular: Yes no symptom reported Gastrointestional: Yes: no symptom reported Genitourinary: Yes: no symptom reported Musculoskeletal: Yes: no symptom reported Skin: Yes no symptom reported Psychiatric/Neurological: Yes: no symptom reported Endocrine: Yes: no symptom reported Physical Exam General Appearance: no apparent distress Skin: warm Respiratory: bilateral CTA Heart: S1S2 Abdomen: soft, bowel sounds present Genitourinary: bladder flat Extremities: pulses present Neurology: alert, oriented Musculoskeletal: Osteoarthritis Assessment Assessment IMP HYPERKALEMIA-BETTER [id number] ARM BC AVF VOLUME OVERLOAD-IMPROVED HX OF FAILED RENAL TX HX OF ADPKD ANEMIA-CONTROLLED NON COMPLIANCE PLAN HD TODAY UF TO TW AND CHALLENGE-PLAN 4.0 LITER UF WILL CHALLENGE DW CARDIOLOGY EVAL AND TX HOPEFULLY D/C AFTER HD TODAY WILL FOLLOW ABHISHEK DUNNE MD Oct 17, 2021 11:30
--- NOTE | 2021-10-17 11:53 | PDOC ---
DANIAL RAVI SDV PILOT/NAVIGATOR/DDS OPERATOR 10/17/21 1153: CARDIO Progress Notes Date and Time Date of Service 10/17/2021 Time of Evaluation 1115 Subjective Subjective: No Chest Pain, No shortness of breath, No Palpitations Vitals Vitals Vital Signs Date Time Temp Pulse Resp B/P (MAP) Pulse Ox O2 Delivery O2 Flow Rate FiO2 10/17/21 10:16 97.6 72 18 164/70 (101) 96 Room Air 97.6 10/17/21 07:00 2.0 Weight Weight [ ] Input and Output Intake and Output Intake and Output 10/17/21 07:00 Intake Total 610 ml Output Total 0 ml Balance 610 ml Intake Oral 610 ml Output Urine Total 0 ml Laboratory Labs Laboratory Tests Test 10/16/21 12:25 10/16/21 16:41 10/16/21 19:47 10/17/21 05:00 Triglycerides Level 127 mg/dL (0-150) Cholesterol Level 121 mg/dL (0-200) LDL Cholesterol, Calculated 62 mg/dL (0-100) VLDL Cholesterol, Calculated 25 mg/dL (0-40) Non-HDL Cholesterol Calculated 87 mg/dL (0-129) HDL Cholesterol 34 mg/dL (40-60) Cholesterol/HDL Ratio 3.6 Glucose (Fingerstick) 175 mg/dL (70-99) 159 mg/dL (70-99) Sodium Level 144 mmol/L (136-145) Potassium Level 5.2 mmol/L (3.5-5.1) Chloride Level 101 mmol/L (98-107) Carbon Dioxide Level 29 mmol/L (21-32) Anion Gap 14 (6-14) Blood Urea Nitrogen 35 mg/dL (8-26) Creatinine 9.5 mg/dL (0.7-1.3) Estimated GFR (Cockcroft-Gault) 5.5 Glucose Level 138 mg/dL (70-99) Calcium Level 8.6 mg/dL (8.5-10.1) Test 10/17/21 08:43 10/17/21 11:36 Glucose (Fingerstick) 162 mg/dL (70-99) 177 mg/dL (70-99) Review of Systems Constitutional: yes: alert, oriented Ears/Nose/Throat: Yes: no symptom reported Eyes: Yes: no symptom reported Pulmonary: Yes dyspnea Cardiovascular: Yes no symptom reported Gastrointestional: Yes: no symptom reported Genitourinary: Yes: no symptom reported Musculoskeletal: Yes: no symptom reported Skin: Yes no symptom reported Psychiatric/Neurological: Yes: no symptom reported Endocrine: Yes: no symptom reported Physical Exam HEENT: Neck Supple W Full Motion Chest: Symmetric LUNGS: Other (diminished) Heart: RRR (SR) Abdomen: Other (obese) Extremities: No Calf Tenderness, Other (1+ bilateral Le pitting edema) Neurology: alert, oriented, follow commands Assessment Assessment 1. Acute on chronic diastolic CHF: due to missed dialysis, compensated 2. Mild troponin elevation: demand mediated, type 2 3. HTN urgency: better 4. ESRD with hyperkalemia 5. DM2: has a broken home glucometer per PCP 6. High suspicion of SAJAN Recommendations 1. Continue secondary prevention measures 2. ASA. Restart home imdur. Start on coreg. 3. Fluid off loading for today 4. Recommend outpt nocturnal oximetry and note hs O2 needs Justicifation of Admission Dx: Justifications for Admission: Justification of Admission Dx: Yes JOHN SORENSON MD 10/17/212152: CARDIO Progress Notes Assessment Assessment Patient seen and examined. Agree with VISUAL EFFECTS ARTIST's assessment and plan. Acute on chr diastolic HF secondary to missed HD Continue fluid removal per nephrology team Slight trop elevation prob demand ischemia BP better controlled with DANIAL Bess APRN Oct 17, 2021 11:53 JOHN SORENSON MD Oct 17, 2021 21:53
--- NOTE | 2021-10-17 12:01 | DS ---
DATE OF DISCHARGE: 10/17/2021 ADMITTING DIAGNOSES: Volume overload secondary to noncompliance with dialysis, acute on chronic systolic and diastolic heart failure, elevated troponin. DISCHARGE DIAGNOSES: Resolving volume overload, resolving acute on chronic systolic and diastolic heart failure; end-stage renal disease, on dialysis; history of noncompliance, atrial fibrillation, congestive heart failure, diabetes, hypertension, polycystic kidney disease, neuropathy, renal transplant, left arm fistula and previous respiratory failure. HOSPITAL COURSE: The patient is a pleasant middle-aged male who basically missed dialysis. He was admitted with volume overload. We consulted Cardiology and Nephrology. We got him dialyzed several times. Today, I saw and examined him. He is back to his baseline and wants to go home. We plan to discharge. DISPOSITION: Home. ACTIVITY: As tolerated. DIET: Renal. DISCHARGE MEDICATIONS: Please see the MRAD. Imdur 60 a day, Renvela 1600 t.i.d., allopurinol 150 a day, amitriptyline 50 at bedtime, aspirin 81 a day, calcium, ferric citrate 5 t.i.d., iron 325 b.i.d., Trisha-Michelle 1 a day, Lasix 40 a day, gabapentin 300 a day, glyburide 10 mg daily with breakfast and 5 at dinner and magnesium oxide 250 a day, pravastatin 40 a day, Novolin insulin 25 b.i.d. TOTAL TIME: [address]: Margie TID: [id number]
[2021-10-17] MEDS ORDERED: DIALYSIS PATIENT. MC PRN ×2 (13:15→13:45)
[2021-10-17] MEDS ORDERED: IV NORMAL SALINE 1000ML BAG 1,000 ML IV PRN ×4 (13:15→13:45)
[2021-10-17] MEDS ORDERED: CARVEDILOL 6.25 MG TABLET. PO SCH (17:00)
--- NOTE | 2021-10-17 17:20 | NUR ---
Discharge Note: CARLINE JEFFERSON Discharge instructions and discharge home medications reviewed with Patient and a copy given. All questions have been answered and understanding verbalized. The following instructions and handouts were given: blood sugar testing, isosorbide, sevelamer. Patient discharged to home with spouse via wheelchair
[2021-10-17] MEDS ORDERED: ATORVASTATIN CALCIUM 10 MG TABLET. PO SCH (21:00)
== END 2021-10-17 17:20 | disposition home health service (06) | DRG 280 ==
LOC: ER 09:32 → ED HOLD 12:55 → 5 SOUTH 15:19 → 6 SOUTH 16:24
PROVIDERS: ADMIT Internal Medicine; ATTEND Internal Medicine
PROC: 5A1D70Z Performance of Urinary Filtration, Intermittent, Less than 6 Hours Per Day (ICD-10-PCS; principal; 2021-10-17)
DX: I13.2 Hypertensive heart and chronic kidney disease with heart failure and with stage 5 chronic kidney disease, or end stage renal disease (principal); I50.43 Acute on chronic combined systolic (congestive) and diastolic (congestive) heart failure; I21.9 Acute myocardial infarction, unspecified; N18.6 End stage renal disease; Z94.0 Kidney transplant status; Q61.3 Polycystic kidney, unspecified; E87.5 Hyperkalemia; D64.9 Anemia, unspecified; E11.22 Type 2 diabetes mellitus with diabetic chronic kidney disease; E11.40 Type 2 diabetes mellitus with diabetic neuropathy, unspecified; E78.5 Hyperlipidemia, unspecified; I16.0 Hypertensive urgency; I48.91 Unspecified atrial fibrillation; E21.3 Hyperparathyroidism, unspecified; K21.9 Gastro-esophageal reflux disease without esophagitis; M19.90 Unspecified osteoarthritis, unspecified site; Z20.822 Contact with and (suspected) exposure to COVID-19; Z82.49 Family history of ischemic heart disease and other diseases of the circulatory system; Z83.3 Family history of diabetes mellitus; Z91.15 Patient's noncompliance with renal dialysis; Z99.2 Dependence on renal dialysis; Z91.041 Radiographic dye allergy status; Z90.49 Acquired absence of other specified parts of digestive tract
CPT/HCPCS: 36415; 71045; 80048; 80053; 80061; 82962; 83605; 83735; 83880; 84484; 85025; 85379; 85610; 85730; 87340; 87428; 93005; 96365; 96366; 96375; J0610; J1815; J3490; 99285-25; G0378

== ENCOUNTER 2022-01-03 15:38 | Emergency (ER) | payer MEDICARE, OTHER ==
[~2022-01-03] VITALS: Ht 177.8 cm; Wt 91.2 kg
[~2022-01-03 15:38] MED LIST changes: +ASPI-630 PO; +CALC1TAB PO; +FERR210T PO; +FOLI0.8T32 PO; +FURO40TA4 PO; +ISOS30TA68 PO; +NPH,100V5 SQ; +PRAV40TA2 PO; +SEVE800T9 PO
[2022-01-03 15:39] VITALS: BP 118/57
--- NOTE | 2022-01-03 16:43 | RAD ---
Exam: XR HAND_LEFT 3 VIEWS History: Hand laceration. Comparison: None. Findings: No fracture or dislocation. Postsurgical changes from left ring finger distal phalanx amputation. Adv anced degenerative changes of the first CMC joint. Diffuse small vessel Monckeberg vascular calcifica tions. No radiopaque foreign body. No subcutaneous emphysema. Impression: 1. No acute osseous abnormality in the left hand. No radiopaque foreign body identified. Electronically signed by: Anthony Silver MD (01/03/2022 4:41 PM) [id number]
[2022-01-03] MEDS ORDERED: HYDR-2759 PO (17:21)
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
[2022-01-03] MEDS ORDERED: BACITRACIN TOPICAL OINT PACKET. TP ONE (17:30)
== END 2022-01-03 17:40 | disposition home or self-care (01) ==
LOC: ER 15:38
DX: S61.412A Laceration without foreign body of left hand, initial encounter (principal); I48.91 Unspecified atrial fibrillation; I13.0 Hypertensive heart and chronic kidney disease with heart failure and stage 1 through stage 4 chronic kidney disease, or unspecified chronic kidney disease; E11.22 Type 2 diabetes mellitus with diabetic chronic kidney disease; N18.9 Chronic kidney disease, unspecified; I50.9 Heart failure, unspecified; Z99.2 Dependence on renal dialysis; Z88.8 Allergy status to other drugs, medicaments and biological substances; W20.8XXA Other cause of strike by thrown, projected or falling object, initial encounter; Y93.89 Activity, other specified; Y92.89 Other specified places as the place of occurrence of the external cause; Y99.8 Other external cause status
CPT/HCPCS: 73130; 99283